=== PATIENT | male | born 1995 | race Caucasian/White ===

== ENCOUNTER 2018-02-14 20:51 | Emergency (ER) | payer SELFPAY ==
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
[2018-02-14] MEDS ORDERED: TORAdol 30 mg Injection IM ONE (21:46)
[2018-02-14] MEDS ORDERED: TORAdol 30 mg Injection ONE (21:51)
[2018-02-15 00:27] VITALS: BP 139/64; PULSE 74; O2SAT 99
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
== END 2018-02-15 00:37 | disposition home or self-care (01) ==
LOC: ED 20:51
DX: S50.811A Abrasion of right forearm, initial encounter (principal); S80.212A Abrasion, left knee, initial encounter; S80.211A Abrasion, right knee, initial encounter; S80.02XA Contusion of left knee, initial encounter; S80.01XA Contusion of right knee, initial encounter; S50.11XA Contusion of right forearm, initial encounter; S50.311A Abrasion of right elbow, initial encounter; V86.55XA Driver of 3- or 4- wheeled all-terrain vehicle (ATV) injured in nontraffic accident, initial encounter
CPT/HCPCS: 73562; 73700; 96372; 99284; J1885